=== PATIENT | female | born 1980 | race Caucasian/White ===

== ENCOUNTER 2024-07-24 19:51 | Emergency (ER) | payer OTHER ==
[2024-07-24 20:08] VITALS: TEMP 98.5
--- NOTE | 2024-07-24 20:10 | ED ---
Abdominal Pain HPI - General Source: patient Mode of arrival: ambulatory Limitations: no limitations <Jose Yoder - Last Filed: 07/24/24 20:10> <Christopher Gay - Last Filed: 07/25/24 02:04> - General Chief Complaint: Abdominal Pain Stated Complaint: Abd pain,Back Pain Time Seen by Provider: 07/24/24 20:10 - History of Present Illness Initial Comments: 44-year-old female presenting with chief complaint of abdominal pain. Patient is having epigastric pain that radiates to her back. Ongoing since Wednesday. She has vomited twice today. She has history of choledocholithiasis. Surgical history includes cholecystectomy and . No chest pain. (Jose Yoder) 44-year-old female with epigastric abdominal pain. Pain is associated with an episode of vomiting and 1 episode of diarrhea. Previous history of cholecystectomy. Patient states she has not urinated in approximately 20 to 24 hours and believes she is dehydrated. (Christopher Gay) - Related Data Allergies Allergy/AdvReac Type Severity Reaction Status Date / Time azithromycin [From Zithromax] Allergy Rash/Hives Verified 07/24/24 20:09 bee venom protein (honey bee) Allergy Anaphylaxis Verified 07/24/24 20:09 ciprofloxacin [From Cipro] Allergy Rash/Hives Verified 07/24/24 20:09 citalopram [From Celexa] Allergy Rash/Hives Verified 07/24/24 20:09 Fish Containing Products Allergy Anaphylaxis Verified 07/24/24 20:09 [Fish] Milk Containing Products Allergy Rash/Hives Verified 07/24/24 20:09 (Dairy) [Dairy] Review of Systems ROS Other: All systems not noted in ROS Statement are negative. <Jose Yoder - Last Filed: 07/24/24 20:10> ROS Other: All systems not noted in ROS Statement are negative. <Christopher Gay - Last Filed: 07/25/24 02:04> ROS Statement: Those systems with pertinent positive or pertinent negative responses have been documented in the HPI. Past Medical History Past Surgical History: Cholecystectomy Smoking Status: Never smoker Past Alcohol Use History: None Reported Past Drug Use History: None Reported <Jose Yoder - Last Filed: 07/24/24 20:10> General Exam Limitations: no limitations <Jose Yoder - Last Filed: 07/24/24 20:10> General appearance: alert, in no apparent distress Head exam: Present: atraumatic, normocephalic Eye exam: Present: normal appearance, PERRL ENT exam: Present: normal exam Neck exam: Present: normal inspection. Absent: tenderness, meningismus Respiratory exam: Present: normal lung sounds bilaterally. Absent: respiratory distress, wheezes Cardiovascular Exam: Present: regular rate, normal rhythm GI/Abdominal exam: Present: soft, tenderness (Epigastric). Absent: distended Neurological exam: Present: alert, oriented X3, CN II-XII intact. Absent: motor sensory deficit Psychiatric exam: Present: normal affect, normal mood Skin exam: Present: warm, dry, intact. Absent: cyanosis, diaphoretic <Christopher Gay - Last Filed: 07/25/24 02:04> - General Exam Comments Initial Comments: Visual Physical Exam Vital signs reviewed General: Well-appearing, nontoxic, no acute distress. Head: Normocephalic, atraumatic Eyes: PERRLA, EOMI ENT: Airway patent Chest: Nonlabored breathing Skin: No visual rash, normal skin tone Neuro: Alert and oriented 3 Musculoskeletal: No gross abnormalities (Jose Yoder) Course Vital Signs 07/24/24 20:06 Temperature 98.5 F Pulse Rate 95 Respiratory 16 Rate Blood Pressure 137/77 O2 Sat by Pulse 98 Oximetry Medical Decision Making <Jose Yoder - Last Filed: 07/24/24 20:10> - Lab Data Result diagrams: 07/24/24 22:45 07/24/24 22:45 <Christopher Gay - Last Filed: 07/25/24 02:04> - Medical Decision Making I performed the quick note portion of this visit, electronically signed Jose Yoder PA-C (Jose Yoder) Was pt. sent in by a medical professional or institution ([facility], BI ARCHITECT, urgent care, hospital, or half-way...) When possible be specific @ -No Did you speak to anyone other than the patient for history (EMS, parent, family, police, friend...)? What history was obtained from this source @ -No Did you review nursing and triage notes (agree or disagree)? Why? @ -I reviewed and agree with nursing and triage notes Were old charts reviewed (outside hosp., previous admission, EMS record, old EKG, old radiological studies, urgent care reports/EKG's, half-way records)? Report findings @ -No old charts were reviewed Differential Abdominal Pain Women: Appendicitis, Cholecystitis, diverticulosis, ischemic bowel, pancreatitis, hepatitis, UTI, gastroenteritis, AAA, incarcerated hernia, bowel obstruction, constipation, inflammatory bowel, hepatitis, peptic ulcer disease, splenic infarction, perforated viscus, vulvitis, ovarian torsion, PID, kidney stone, placenta abruption, this is not meant to be an all-inclusive list ] EKG interpreted by me (3pts min.). @ -[Sinus rhythm rate of 87, W[place] interval 160, QRS duration 81, QTc [address] segment elevation. X-rays interpreted by me (1pt min.). @ -None done CT interpreted by me (1pt min.). @ -CT angiography of the chest is negative for pulmonary embolism, no acute findings, CT abdomen pelvis shows ovarian abnormality which will require outpatient ultrasound patient is informed. There is possible enteritis. U/S interpreted by me (1pt. min.). @ -None done What testing was considered but not performed or refused? (CT, X-rays, U/S, labs)? Why? @ -None What meds were considered but not given or refused? Why? @ -None Did you discuss the management of the patient with other professionals (professionals i.e. , PA, BI ARCHITECT, lab, RT, psych nurse, medical social consultant, river captain, teacher, reserve officer, family service caseworker)? Give summary @ -No Was smoking cessation discussed for >3mins.? @ -No Was critical care preformed (if so, how long)? @ -No Were there social determinants of health that impacted care today? How? (Homelessness, low income, unemployed, alcoholism, drug addiction, transpor tation, low edu. Level, literacy, decrease access to med. care, alf, rehab)? @ -No Was there de-escalation of care discussed even if they declined (Discuss DNR or withdrawal of care, Hospice)? DNR status @ -No What co-morbidities impacted this encounter? (DM, HTN, Smoking, COPD, CAD, Cancer, CVA, ARF, Chemo, Hep., AIDS, mental health diagnosis, sleep apnea, morbid obesity)? @ -None Was patient admitted / discharged? Hospital course, mention meds given and route, prescriptions, significant lab abnormalities, going to OR and other pertinent info. @ -44-year-old female with epigastric abdominal pain, vomiting. Patient well- appearing at the time my evaluation. She does have abdominal tenderness in the epigastrium. Laboratory test including CBC, CMP is unremarkable. Patient given IV fluid and symptomatic treatment. No further vomiting. Patient stable for discharge at this time. Undiagnosed new problem with uncertain prognosis? @ -No Drug Therapy requiring intensive monitoring for toxicity (Heparin, Nitro, Insulin, Cardizem)? @ -No Were any procedures done? @ -No Diagnosis/symptom? @ -[Abdominal pain, dehydration Acute, or Chronic, or Acute on Chronic? @ -Acute Uncomplicated (without systemic symptoms) or Complicated (systemic symptoms)? @ -[default Side effects of treatment? @ -No Exacerbation, Progression, or Severe Exacerbation? @ -No Poses a threat to life or bodily function? How? (Chest pain, [place], [place], pneumonia, PE, COPD, DKA, ARF, appy, cholecystitis, CVA, Diverticulitis, Homicidal, Suicidal, threat to staff... and all critical care pts) @ -No (Christopher Gay) - Lab Data Lab Results 07/24/24 07/24/24 07/24/24 Range/Units 01:32 22:45 22:45 WBC 9.2 (3.8-10.6) k/uL RBC 4.70 (3.80-5.40) m/uL Hgb 13.7 (11.4-16.0) gm/dL Hct 41.1 (34.0-46.0) % MCV 87.4 (80.0-100.0) fL MCH 29.2 (25.0-35.0) pg MCHC 33.4 (31.0-37.0) g/dL RDW 13.7 (11.5-15.5) % Plt Count 202 (150-450) k/uL MPV 8.6 Neutrophils % 65 % Lymphocytes % 25 % Monocytes % 4 % Eosinophils % 5 % Basophils % 0 % Neutrophils # 6.0 (1.3-7.7) k/uL Lymphocytes # 2.3 (1.0-4.8) k/uL Monocytes # 0.4 (0-1.0) k/uL Eosinophils # 0.4 (0-0.7) k/uL Basophils # 0.0 (0-0.2) k/uL PT 9.7 L (10.0-12.5) sec INR 0.9 (<1.2) APTT 24.8 (22.0-30.0) sec Sodium (137-145) mmol/L Potassium (3.5-5.1) mmol/L Chloride (98-107) mmol/L Carbon Dioxide (22-30) mmol/L Anion Gap mmol/L BUN (7-17) mg/dL Creatinine (0.52-1.04) mg/dL Est GFR (CKD-EPI)AfAm (>60 ml/min/1.73 sqM) Est GFR (CKD-EPI)NonAf (>60 ml/min/1.73 sqM) Glucose (74-99) mg/dL Plasma Lactic Acid Charles (0.7-2.0) mmol/L Calcium (8.4-10.2) mg/dL Magnesium 2.1 (1.6-2.3) mg/dL Total Bilirubin (0.2-1.3) mg/dL AST (14-36) U/L ALT (4-34) U/L Alkaline Phosphatase (38-126) U/L Troponin I (0.000-0.034) ng/mL Total Protein (6.3-8.2) g/dL Albumin (3.5-5.0) g/dL Amylase (30-110) U/L Lipase (23-300) U/L 07/24/24 07/24/24 07/24/24 Range/Units 22:45 22:45 22:45 WBC (3.8-10.6) k/uL RBC (3.80-5.40) m/uL Hgb (11.4-16.0) gm/dL Hct (34.0-46.0) % MCV (80.0-100.0) fL MCH (25.0-35.0) pg MCHC (31.0-37.0) g/dL RDW (11.5-15.5) % Plt Count (150-450) k/uL MPV Neutrophils % % Lymphocytes % % Monocytes % % Eosinophils % % Basophils % % Neutrophils # (1.3-7.7) k/uL Lymphocytes # (1.0-4.8) k/uL Monocytes # (0-1.0) k/uL Eosinophils # (0-0.7) k/uL Basophils # (0-0.2) k/uL PT (10.0-12.5) sec INR (<1.2) APTT (22.0-30.0) sec Sodium 138 (137-145) mmol/L Potassium 4.7 (3.5-5.1) mmol/L Chloride 108 H (98-107) mmol/L Carbon Dioxide 19 L (22-30) mmol/L Anion Gap 11 mmol/L BUN 9 (7-17) mg/dL Creatinine 0.75 (0.52-1.04) mg/dL Est GFR (CKD-EPI)AfAm >90 (>60 ml/min/1.73 sqM) Est GFR (CKD-EPI)NonAf >90 (>60 ml/min/1.73 sqM) Glucose 84 (74-99) mg/dL Plasma Lactic Acid Charles 0.8 (0.7-2.0) mmol/L Calcium 8.8 (8.4-10.2) mg/dL Magnesium (1.6-2.3) mg/dL Total Bilirubin 0.9 (0.2-1.3) mg/dL AST 35 (14-36) U/L ALT 17 (4-34) U/L Alkaline Phosphatase 51 (38-126) U/L Troponin I 0.017 (0.000-0.034) ng/mL Total Protein 7.6 (6.3-8.2) g/dL Albumin 4.3 (3.5-5.0) g/dL Amylase 63 (30-110) U/L Lipase 26 (23-300) U/L Disposition <Jose Yodre - Last Filed: 07/24/24 20:10> Is patient prescribed a controlled substance at d/c from ED?: No <Christopher Gay - Last Filed: 07/25/24 02:04> Clinical Impression: Abdominal pain Disposition: HOME SELF-CARE Condition: Fair Instructions (If sedation given, give patient instructions): Abdominal Pain (ED) Additional Instructions: Please follow-up with your primary care provider regarding abnormality on ovary. Referrals: None,Stated [Primary Care Provider] - 1-2 days
[2024-07-24 23:10] LABS: Basophils % (A) 0 %; Eosinophils # (A) 0.4 k/uL (0-0.7); Eosinophils % (A) 5 %; HCT 41.1 % (34.0-46.0); HGB 13.7 gm/dL (11.4-16.0); Lymphocytes # (A) 2.3 k/uL (1.0-4.8); Lymphocytes % (A) 25 %; MCH 29.2 pg (25.0-35.0); MCHC 33.4 g/dL (31.0-37.0); MCV 87.4 fL (80.0-100.0); Mean Platelet Volume 8.6; Monocytes # (A) 0.4 k/uL (0-1.0); Monocytes % (A) 4 %; Neutrophils % (A) 65 %; Platelet Count 202 k/uL (150-450); RDW 13.7 % (11.5-15.5); WBC 9.2 k/uL (3.8-10.6)
[2024-07-25 00:15] LABS: ALT 17 U/L (4-34); African American GFR (CKD) >90 (>60 ml/min/1.73 sqM); Amylase 63 U/L (30-110); Anion Gap 11 mmol/L; Blood Urea Nitrogen 9 mg/dL (7-17); Calcium 8.8 mg/dL (8.4-10.2); Carbon Dioxide 19 mmol/L (22-30); Chloride 108 mmol/L (98-107); Glucose 84 mg/dL (74-99); Lipase 26 U/L (23-300); Non-African American GFR(CKD) >90 (>60 ml/min/1.73 sqM); Sodium 138 mmol/L (137-145)
[2024-07-25 00:29] LABS: Potassium 4.7 mmol/L (3.5-5.1)
[2024-07-25 00:30] LABS: AST 35 U/L (14-36); Albumin 4.3 g/dL (3.5-5.0); Alkaline Phosphatase 51 U/L (38-126); Total Bilirubin 0.9 mg/dL (0.2-1.3); Total Protein 7.6 g/dL (6.3-8.2)
[2024-07-25 00:37] LABS: INR 0.9 (<1.2); Partial Thromboplastin Time 24.8 sec (22.0-30.0); Prothrombin Time 9.7 sec (10.0-12.5)
--- NOTE | 2024-07-25 00:44 | CT ---
EXAM: CT Angiography Chest With Intravenous Contrast CLINICAL HISTORY: ITS.REASON CT Reason: pain TECHNIQUE: Axial computed tomographic angiography images of the chest with intravenous contrast. CTDI is 11.2 mGy and DLP is 392.9 mGy-cm. This CT exam was performed using one or more of the following dose reduction techniques: automated exposure control, adjustment of the mA and/or kV according to patient size, and/or use of iterative reconstruction technique. MIP reconstructed images were created and reviewed. COMPARISON: No relevant prior studies available. FINDINGS: Pulmonary arteries: Unremarkable. No pulmonary embolism. Aorta: No acute findings. No thoracic aortic aneurysm. Lungs: Unremarkable. No mass. No consolidation. Pleural space: Unremarkable. No significant effusion. No pneumothorax. Heart: Unremarkable. No cardiomegaly. No significant pericardial effusion. No evidence of RV dysfunction. Bones/joints: No acute fracture. No dislocation. Soft tissues: Unremarkable. Lymph nodes: Unremarkable. No enlarged lymph nodes. IMPRESSION: Normal chest CTA. No pulmonary embolism.
[2024-07-25] MEDS: KETOROLAC 15 MG/ML 1 ML VIAL IVP STA (00:51)
[2024-07-25] MEDS: SODIUM CHLORIDE 0.9% 1,000 ML IV STA (00:51)
[2024-07-25] MEDS: ONDANSETRON 4 MG/2 ML VIAL IVP STA (00:52)
--- NOTE | 2024-07-25 00:53 | CT ---
EXAM: CT Abdomen and Pelvis With Intravenous Contrast CLINICAL HISTORY: ITS.REASON CT Reason: pain TECHNIQUE: Axial computed tomography images of the abdomen and pelvis with intravenous contrast. CTDI is 15.8 mGy and DLP is 907.2 mGy-cm. This CT exam was performed using one or more of the following dose reduction techniques: automated exposure control, adjustment of the mA and/or kV according to patient size, and/or use of iterative reconstruction technique. COMPARISON: No relevant prior studies available. FINDINGS: Lung bases: Unremarkable. No mass. No consolidation. ABDOMEN: Liver: Unremarkable. No mass. Gallbladder and bile ducts: Unremarkable. No calcified stones. No ductal dilation. Pancreas: Unremarkable. No mass. No ductal dilation. Spleen: Unremarkable. No splenomegaly. Adrenals: Unremarkable. No mass. Kidneys and ureters: Unremarkable. No solid mass. No hydronephrosis. Stomach and bowel: Wall thickening of the terminal ileum with mild surrounding inflammation, consistent with enteritis. Correlate for inflammatory bowel disease. No obstruction. PELVIS: Appendix: No findings to suggest acute appendicitis. Bladder: Unremarkable. No mass. Reproductive: Multilobulated lesion in the LEFT ovary measures approximately 3.0 x 3.2 cm. Recommend pelvic ultrasound correlation. ABDOMEN and PELVIS: Intraperitoneal space: Mild free fluid in the pelvis. No free air. Bones/joints: No acute fracture. No dislocation. Soft tissues: Unremarkable. Vasculature: Unremarkable. No abdominal aortic aneurysm. Lymph nodes: Unremarkable. No enlarged lymph nodes. IMPRESSION: 1. Multilobulated lesion in the LEFT ovary measures approximately 3.0 x 3.2 cm. Recommend pelvic ultrasound correlation. 2. Wall thickening of the terminal ileum with mild surrounding inflammation, consistent with enteritis. Correlate for inflammatory bowel disease.
[2024-07-25] MEDS: MORPHINE SULFATE 4 MG/ML SYRINGE IVP STA (00:55)
[2024-07-25 02:57] LABS: Magnesium 1.8 mg/dL (1.6-2.3); Phosphorus 2.9 mg/dL (2.5-4.5)
[2024-07-25 04:10] LABS: Mucus,Urine Rare /hpf; RBC,Urine 1 /hpf (0-5); Squamous Epithelial Cell,Urine 2 /hpf (0-4); WBC,Urine 1 /hpf (0-5)
[2024-07-25 04:14] LABS: Color,Urine Dark Yellow
[2024-07-25 04:15] LABS: Appearance,Urine Clear (Clear); Bilirubin,Urine Negative (Negative); Blood,Urine Trace (Negative); Glucose,Urine (UA) Negative (Negative); Ketones,Urine 3+ (Negative); PH, Urine 5.5 (5.0-8.0); Protein,Urine Trace (Negative); Specific Gravity,Urine 1.015 (1.001-1.035)
[2024-07-25 04:16] LABS: Leukocyte Esterase,Urine Trace (Negative); Nitrite,Urine Negative (Negative); Urobilinogen,Urine 0.2 mg/dL (<2.0)
[2024-07-25 04:26] VITALS: BP 136/83; PULSE 70; RESP 18
== END 2024-07-25 04:37 | disposition home or self-care (01) ==
LOC: EC 19:51
DX: N83.9 Noninflammatory disorder of ovary, fallopian tube and broad ligament, unspecified (principal); E86.0 Dehydration; Z88.1 Allergy status to other antibiotic agents; Z91.030 Bee allergy status; Z91.011 Allergy to milk products; Z91.013 Allergy to seafood
CPT/HCPCS: 36415 ×2; 93005; 83880; 80053; 82150; 83605; 83690; 83735 ×2; 84100; 84484; 85025; 85610; 85730; 81001; 71275; 74177; 99284; 96374; 96375; 96361; J2405; J1885; Q9967